=== PATIENT | male | born 2000 | race African-American/Black ===

== ENCOUNTER 2019-05-06 13:44 | Emergency (ER) | payer BC, OTHER ==
[2019-05-06 14:24] LABS: #Basophils 0.1 thou/uL (0.0-0.2); #Lymphocytes 1.4 thou/uL (1.20-3.40); #Monocytes 0.9 thou/uL (0.11-0.59); #Neutrophils 6.1 thou/uL (1.40-6.50); %Basophils 0.7 % (0.0-1.0); %Eosinophils 0.1 % (0.0-10.0); %Lymphocytes 15.9 % (28.0-48.0); %Neutrophils 72.3 % (31.0-61.0); Hemoglobin 14.1 g/dL (14.0-18.0); Mean Corpuscular HGB CONC 33.4 g/dL (32.0-36.0); Mean Corpuscular Hemoglobin 28.5 pg (25.0-35.0); Mean Corpuscular Volume 85.2 fL (78.0-98.0); Mean Platelet Volume 8.5 fL (7.4-10.4); Platelet Count 170 thou/uL (130-400); Red Blood Cell (RBC) Count 4.97 mill/uL (4.00-5.20); White Blood Cell (WBC) Count 8.5 thou/uL (4.8-10.8)
--- NOTE | 2019-05-06 14:28 | RAD ---
EXAM: XR Chest 1 View Portable PROVIDED CLINICAL HISTORY: Cough COMPARISON: None FINDINGS: Cardiac and mediastinal silhouettes is within normal limits. Increased density in the medial left low er lung zones/retrocardiac region compatible with airspace disease related to pneumonia. Lungs appear otherwise clear. No pleural fluid or pneumothorax evident. IMPRESSION: Left lower lung zone airspace disease, compatible with pneumonia.
[2019-05-06 14:39] LABS: Bacteria/HPF None Seen HPF (None Seen); Bilirubin Negative (Negative); Blood, Urine Negative (Negative); Clarity Clear (Clear); Glucose, Urine (Dipstick) Normal (Negative); Leukocyte Negative Leu/uL (Negative); Nitrite Negative (Negative); Protein, Urine (Dipstick) 30 mg/dL (Neg-Trace); RBC/HPF 0-3 HPF (0-3); Squamous Epithelial 0-3 HPF (0-3); Urobilinogen 6 mg/dL (Less than 2); WBC/HPF 0-3 HPF (0-3)
[2019-05-06] MEDS ORDERED: cefTRIAXone\\ROCEPHIN 2 GM VIAL ONE (14:40)
[2019-05-06 14:46] LABS: ALT (SGPT) 12 U/L (8-55); AST (SGOT) 27 U/L (10-45); Albumin 4.3 g/dL (3.5-5.0); Alkaline Phosphatase 45 U/L (50-130); Anion Gap 17 mmol/L (10-20); BUN (Urea Nitrogen) 12 mg/dL (8.4-21.0); Bilirubin, Total 1.3 mg/dL (0.2-1.2); Calc. Creatinine Clearance 0 mL/min (70-130); Calcium 9.1 mg/dL (7.8-10.44); Carbon Dioxide 23 mmol/L (22-29); Chloride 101 mmol/L (98-107); Estimated GFR-MDRD Greater than 90; Globulin 3.2 g/dL (2.4-3.5); Glucose 101 mg/dL (70-105); Protein, Total 7.5 g/dL (6.0-8.3); Sodium 137 mmol/L (136-145)
== END 2019-05-06 15:45 | disposition home or self-care (01) ==
LOC: ERS 13:44
DX: J18.9 Pneumonia, unspecified organism (principal); R55 Syncope and collapse
CPT/HCPCS: 71045; 80053; 81003; 81015; 85025; 85379; 87804; 93005; 96365; J0696